=== PATIENT | male | born 1995 | race Caucasian/White ===

== ENCOUNTER 2018-07-08 19:30 | Inpatient (IN) | payer OTHER, BC ==
[2018-07-08] MEDS ORDERED: ONDANSETRON 4 MG/2 ML VIAL IVP ONE (19:51)
[2018-07-08] MEDS ORDERED: NS 1,000 ML IV ONE (19:55)
--- NOTE | 2018-07-08 19:55 | EDPHY ---
H & P Stated Complaint: fell hard skiing friday, worsening L rib/abd/flank pain, nausea Time Seen by Provider: 07/08/18 19:39 HPI/ROS: CHIEF COMPLAINT: Left upper quadrant pain HISTORY OF PRESENT ILLNESS: 23-year-old male presents with left upper quadrant pain. 1 week ago he was snowboarding and fell forward striking his left side on the snow. Initially he felt okay, but developed gradually increasing left- sided rib and abdominal pain the following day. Vomiting x1 initially. The pain is now moderate to severe and constant. The pain increases with deep inspiration and with movement. Tolerating oral fluids well. Has stopped his usual activities secondary to pain and is mainly lying around his home. No SOB or other associated symptoms. He was helmeted and did not hit his head. No PALENCIA or neck pain. REVIEW OF SYSTEMS: complete 10 point ROS reviewed and is negative except for the noted elements in the HPI - Personal History Current Tetanus/Diphtheria Vaccine: Yes Current Tetanus Diphtheria and Acellular Pertussis (TDAP): Yes - Medical/Surgical History Hx Asthma: No Hx Chronic Respiratory Disease: No Hx Diabetes: No Hx Cardiac Disease: No Hx Renal Disease: No Hx Cirrhosis: No Hx Alcoholism: No Hx HIV/AIDS: No Hx Splenectomy or Spleen Trauma: No Other PMH: MCL injury - Social History Smoking Status: Never smoked Alcohol Use: Sober Drug Use: None Additional Social History: Student at - Physical Exam Exam: General Appearance: Alert, pleasant, appears in pain with inspiration and with any movement Eyes: Pupils equal and round, no conjunctival pallor ENT, Mouth: Mucous membranes moist Neck: Normal inspection, NT, ROM without pain Respiratory: normal inspection, NT, Lungs are clear to auscultation Cardiovascular: Regular rate and rhythm Gastrointestinal: Abdomen is diffusely tender, especially in the left upper quadrant Back: Left paraspinous tenderness, no midline tenderness to palpation/ percussion Neurological: A&O, nonfocal, slow and steady gait Skin: Warm and dry, no ecchymosis Extremities: Normal inspection, no tenderness Psychiatric: Mood and affect normal Constitutional: Initial Vital Signs Temperature (C) 37.1 C 07/08/18 19:34 Heart Rate 101 H 07/08/18 19:34 Respiratory Rate 18 07/08/18 19:34 Blood Pressure 110/78 07/08/18 19:34 O2 Sat (%) 92 07/08/18 19:34 O2 Delivery Mode Room Air Allergies/Adverse Reactions: bacitracin [From Neosporin] Allergy (Severe, Verified 07/08/18 19:32) bacitracin zinc [From Neosporin] Allergy (Severe, Verified 07/08/18 19:32) benzalkonium chloride [From Neosporin] Allergy (Severe, Verified 07/08/18 19:32) gramicidin D [From Neosporin] Allergy (Severe, Verified 07/08/18 19:32) hydrocortisone [From Neosporin] Allergy (Severe, Verified 07/08/18 19:32) neomycin sulfate [From Neosporin] Allergy (Severe, Verified 07/08/18 19:32) polymyxin B [From Neosporin] Allergy (Severe, Verified 07/08/18 19:32) polymyxin B sulfate [From Neosporin] Allergy (Severe, Verified 07/08/18 19:32) Home Medications: Medication Instructions Recorded Herbals/Supplements -Info Only 1 ea PO DAILY 07/08/18 Ibuprofen [Motrin (*)] 200 - 600 mg PO Q6H PRN 07/08/18 Acetaminophen [Tylenol 325mg (*)] 325 - 650 mg PO Q4HRS PRN tab 07/10/18 oxyCODONE IR [Oxycodone Ir (*)] 5 - 10 mg PO Q4 PRN #30 tab 07/10/18 Medical Decision Making - Diagnostics Imaging Results: Abdomen CT 07/08/18 19:51 Impression: Two left renal lacerations, measuring greater than 1 cm. No definite extension into the renal pelvis or collecting system. No evidence for active extravasation. This would indicate a grade 3 injury. Pararenal hematoma and retroperitoneal hematoma, as above. Results called and discussed with Oralia Frost M.D., on July 08, 2018 at 2121. Imaging: Discussed imaging studies w/ revival clerk Radiologist, I viewed and interpreted images myself ED Course/Re-evaluation: This patient presents 1 week after snowboarding accident with left upper quadrant tenderness. Physical exam is quite concerning for intraperitoneal hemorrhage. CT scan of the abdomen pelvis ordered and reveals a grade 3 kidney laceration with surrounding hematoma, no rib fx and no splenic injury. Results discussed with the patient. He is clinically stable, with normal vital signs and hematocrit 37. Urinalysis is normal, no evidence of microscopic hematuria. Dr. Angelina Tellez was consulted for admission. Dr. Campbell was consulted and will see the patient in the hospital. The patient's pain was controlled with IV morphine, multiple doses required to control pain. Differential Diagnosis: Differential diagnosis includes though it is not limited to fracture, intracranial hemorrhage, pneumothorax, hemothorax, intra-abdominal hemorrhage. - Data Points Laboratory Results: Laboratory Results 07/08/18 19:54 07/08/18 19:54 Medications Given: Discontinued Medications Acetaminophen (Tylenol) 325 - 650 mg PO Q4HRS PRN PRN Reason: Pain, Mild Able to Take PO Stop: 01/04/19 22:58 Last Admin: 07/09/18 07:40 Dose: 650 mg Sodium Chloride (Ns) 1,000 mls @ 0 mls/hr IV EDNOW ONE; Wide Open PRN Reason: Protocol Stop: 07/08/18 19:56 Last Admin: 07/08/18 19:59 Dose: 1,000 mls Morphine Sulfate (Morphine) 6 mg IVP EDNOW ONE Stop: 07/08/18 19:52 Last Admin: 07/08/18 20:00 Dose: 6 mg Morphine Sulfate (Morphine) 6 mg IVP Q1H PRN PRN Reason: Pain, Severe Unable to Take PO Last Admin: 07/08/18 22:16 Dose: 4 mg Ondansetron HCl (Zofran) 4 mg IVP EDNOW ONE Stop: 07/08/18 19:52 Last Admin: 07/08/18 20:00 Dose: 4 mg Oxycodone HCl (Oxycodone Ir) 5 - 10 mg PO Q4 PRN PRN Reason: Pain, Severe Able to Take PO Stop: 07/19/18 09:32 Last Admin: 07/10/18 04:45 Dose: 5 mg Senna/Docusate Sodium (Senokot-S) 1 tab PO BID KANG Stop: 01/05/19 10:14 Last Admin: 07/09/18 22:10 Dose: 1 tab Point of Care Test Results: Chemistry 07/08/18 19:59 POC Sodium 142 mEq/L mEq/L (135-145) POC Potassium 3.5 mEq/L mEq/L (3.3-5.0) POC Chloride 103 mEq/L mEq/L (97-110) POC Total CO2 25 mEq/L mEq/L (22-31) POC BUN 19 mg/dL mg/dL (7-23) POC Creatinine 0.8 mg/dL mg/dL (0.7-1.3) POC Glucose 109 mg/dL H mg/dL (70-100) ISTAT H&H 07/08/18 19:59 POC Hgb 15.6 gm/dL gm/dL (13.7-17.5) POC Hct 46 % % (40-51) Departure - Departure Disposition: [facility] Acute Clinical Impression: Kidney laceration, left Qualifiers: Encounter type: initial encounter Qualified Code(s): S37.032A - Laceration of left kidney, unspecified degree, initial encounter Condition: Fair
[2018-07-08 20:09] LABS: PLATELET COUNT 210 10^3/uL (150-400)
[2018-07-08] MEDS ORDERED: ZOLPIDEM TARTRATE 5 MG TAB PO PRN (22:59)
[2018-07-08] MEDS ORDERED: DIAZEPAM 5 MG TAB PO PRN (22:59)
[2018-07-08] MEDS ORDERED: D5W 1/2 NS 1,000 ML IV SCH (23:00)
--- NOTE | 2018-07-08 23:25 | GHP ---
[f rep st] HISTORY AND PHYSICAL DATE OF ADMISSION: 07/08/2018 HISTORY OF PRESENT ILLNESS: Patient is a 23-year-old male who had a fall snowboarding 5 days ago. Alfie castillo has had persistent left flank and upper abdominal pain. He came to the ER tonight because of incre asing pain and discomfort. He has had no hematuria. He had no shortness of breath. He denies any l oss of consciousness, and he complains of no other injuries. He has been moving around and walking b ut not very actively. Chest x-ray in the ER is clear, although report is pending. The CT scan revea ls a left renal laceration with perinephric hematoma and psoas retroperitoneal hematoma on the left, but no other major injuries identified. He is admitted at this time for pain control and observation . Risks and options have been fully discussed. REVIEW OF SYSTEMS: Negative on a full 10-point review. Specifically, he does not smoke, and denies diabetes, cardiac problems, or asthma. MEDICATIONS: Include cannabis and ibuprofen. PAST HISTORY: Reveals no history of surgery or major hospitalizations or serious medical problems. SOCIAL HISTORY: Reveals he does not smoke. PHYSICAL EXAMINATION: GENERAL: Reveals an alert but uncomfortable 23-year-old male in no acute dist ress. VITAL SIGNS: He is afebrile. HEENT: Reveals him to be PERRLA, nonicteric, EOMs intact. No adenopathy or oral lesions. NECK: Supple, nontender, with full range of motion. CHEST: Clear and symmetric. He is tender over his lower left ribs but with full breath sounds. CARDIAC: Reveals a r egular rhythm without murmurs. ABDOMEN: Soft. It is mildly distended. He is quite guarding in the left upper quadrant and left flank. There are no hernias. GENITALIA: Normal. EXTREMITIES: Revea l full range of motion, full pulses. BACK: Reveals no spinal tenderness or CVA tenderness. NEURO: Symmetric and physiologic. PSYCH: Reveals him to be alert, oriented, and cooperative. ALLERGIES: Include Neosporin. IMPRESSION: Left renal laceration with perinephric hematoma with no signs of extravasation or urine leak. PLAN: Admit for pain control and observation. Urology consultation. /[id number]/MODL
[2018-07-09] MEDS: ACETAMINOPHEN 325 MG TAB PO PRN ×2 (01:42→07:40)
[2018-07-09 05:43] LABS: PLATELET COUNT 188 10^3/uL (150-400)
[2018-07-09 05:50] LABS: INR 1.11 (0.83-1.16); PROTIME(PATIENT) 14.5 SEC (12.0-15.0)
--- NOTE | 2018-07-09 06:44 | PDMN ---
Medical Necessity Medical necessity: Pt meets inpt criteria per MD order and Urologic Disease GRG. 23 y/o presenting w/persistent and increasing L flank and upper abd pain, had fall snowboarding 5 days ago, admitted w/L renal laceration w/perinephric hematoma and psoas retroperitoneal hematoma as seen on CT. Pain control, urology consult today.
--- NOTE | 2018-07-09 09:34 | TRAUMAPNT ---
Trauma Tertiary Progress Note New Findings: none Subjective: pt complainin gof left sided abdomianl pain pe heent no injuries lungs clear abd firm, no masses, teder luq and left med abdomen back, ext wnl assess: known 5 day old le renal laceration with no urine leak. urolgy to see today, liekly can be discharged today or tomorrw, as hct kecia, pt eating, requiring only tylenol for pain. Objective: Vital Signs Temp Pulse Resp BP Pulse Ox 36.6 C 71 16 112/63 95 07/09/18 07:20 07/09/18 07:20 07/09/18 07:20 07/09/18 07:20 07/09/18 07:20 Laboratory Results 07/09/18 05:21 07/09/18 05:21 07/08/18 07/09/18 07/10/18 05:59 05:59 05:59 Intake Total 450 Output Total 400 575 Balance 50 -575 PT 14.5 SEC (12.0-15.0) 07/09/18 05:21 INR 1.11 (0.83-1.16) 07/09/18 05:21
--- NOTE | 2018-07-09 10:17 | SOAPPROG ---
SOAP Progress Note Assessment/Plan: Assessment: Kidney laceration, left Acute bed rest, serial hcts and dc in am- -discussed risks and recommendations after DC Plan: as above 07/09/18 10:14 Subjective: rt flank and rib pain Objective: Vital Signs Temp Pulse Resp BP Pulse Ox 36.6 C 71 16 112/63 95 07/09/18 07:20 07/09/18 07:20 07/09/18 07:20 07/09/18 07:20 07/09/18 07:20 Laboratory Results 07/09/18 05:21 07/09/18 05:21 07/08/18 07/09/18 07/10/18 05:59 05:59 05:59 Intake Total 450 Output Total 400 575 Balance 50 -575 PT 14.5 SEC (12.0-15.0) 07/09/18 05:21 INR 1.11 (0.83-1.16) 07/09/18 05:21 Physical Exam - Physical Exam General Appearance: alert Neck: full range of motion, supple Respiratory: No respiratory distress Cardiac/Chest: regular rate, rhythm Abdomen: other (pain in rt upper quadrant seems more musculoskeletal) Back: CVA tenderness (left rib and muscle pain noted, no bruise or crepitus) Skin: warm/dry Extremities: other (negative psoas sign and no anterior leg numbness), No calf tenderness, No Krishna's sign Neuro/Psych: alert, oriented x 3 ICD10 Worksheet Patient Problems: Problems Problem Status Onset Kidney laceration, left Acute
--- NOTE | 2018-07-09 10:39 | GCON ---
[f rep st] CONSULTATION The Trauma Service has asked that I see this patient because of left renal fracture. By history, the gentleman was snowboarding 5 days ago at [place], and he had an injury where he hit the tip of his panchito windy and seemed to hit near the chair lift. He was dazed because he had a closed head injury with a h elmet on the left side of his head. The initial impressions by the people of [facility] that he had a wrist fracture. That panned out not to be so. He does not recall exactly how he hit with respect to his abdomen, chest, or back. He has had a CAT scan that reveals a left renal laceration with perine phric hematoma that extends down the psoas muscle anteriorly. There is no devascularized segment of kidney and no major vascular injury and no urine extravasation on the contrast study, and the ureter appeared to be normal without any obstruction. I did not really appreciate any rib fractures on the study. The spleen appeared to be intact. Gallbladder and liver appeared to be intact, and other gaudencio n that retroperitoneal hematoma, remaining structures appeared to be normal. There was a question of having an upper pole cyst versus a small fracture there and probably would do an ultrasound in 6 mon ths to assess the kidney and if there are any cystic lesions or fluid collections. REVIEW OF SYSTEMS: Negative for cardiac, respiratory, GI, and endocrine. MEDICATIONS: Include: 1. Cannabis. 2. Ibuprofen. 3. CBD oil. PAST HISTORY: No surgery or previous medical issues. SOCIAL HISTORY: Reviewed. DIAGNOSTICS: Reviewed his laboratory values and the CAT scan. CAT scan is noted and the impression on the CAT scan is he has a grade 3 fracture without urinary extravasation or devascularization or hi lar injury. RECOMMENDATION: Several hematocrits confirmed that he is not having decreased hematocrit or blood co unt. Recommend he be on Senokot to help prevent any constipation. Pain control will be addressed by the trauma team, and if his hematocrit is stabilized, which I am sure it will be, he should be disch arged home in a.m. I have recommended that he not do any contact sports of any kind for 3 months to let the kidney heal, and in a month if he is feeling better, more physical activity can be performed and follow up with us with an ultrasound which we could do or schedule at a 4-week visit in the [facility]. /[id number]/MODL
[2018-07-09] MEDS: SENNOSIDES/DOCUSATE SODIUM TAB PO SCH ×2 (11:22→22:10)
[2018-07-09] MEDS: oxyCODONE IR 5 MG TAB PO PRN ×2 (14:08→22:11)
--- NOTE | 2018-07-09 15:36 | ASMTCMCOM ---
CM Note CM Note Notes: Pt admitted to hospital for left flank pain. Pt had a fall 5 days ago while snowboarding. Imaging shows a lacerated kidney, treatment will be supportive at this time. Per RN and OT, pt ambulates independently, no needs identified. CM available for any changes. Will dc home w/support of girlfriend when medically stable. DC Plan: Independent Date Signed: 07/09/2018 03:35 PM Electronically Signed By:Aide Torres RN
[2018-07-09 16:00] LABS: PLATELET COUNT 193 10^3/uL (150-400)
[2018-07-09 23:05] VITALS: BP 116/70
[2018-07-10] MEDS: oxyCODONE IR 5 MG TAB PO PRN (04:45)
--- NOTE | 2018-07-10 08:30 | PDDCSUM ---
Discharge Summary Discharge Summary: DISCHARGE SUMMARY Date of Admission July 08, 2018 Date of Discharge July 10, 2018 DISCHARGE DIAGNOSES -snowboarding accident with multiple left renal lacerations without extravasation with perirenal hematoma and retroperitoneal hematoma HOSPITAL COURSE The patient presented to the emergency department 5 days after sustaining a fall while snowboarding. Workup in the emergency department found the above injuries. He was subsequently admitted to the trauma service. His hemoglobin was monitored and was stable. The patient had consultation from urology who agreed with conservative management. The patient subsequently did well, he had improvement of his pain, he also had consultations from both Physical and Occupational therapy. He was discharged home in stable condition on the 10 of July. DISCHARGE MEDICATIONS Oxycodone as needed for pain DISPOSITION Home FOLLOW UP Follow up with Dr. Abrams of Urology and 4 weeks Follow up with Trauma Services as needed, no formal follow-up required Total DC time, 30 minutes
[2018-07-10] MEDS ORDERED: Herbals/Supplements -Info Only PO SCH (09:00)
== END 2018-07-10 09:30 | disposition home or self-care (01) | DRG 700 ==
LOC: F3E 23:07
PROVIDERS: ADMIT Surgery; ATTEND Surgery
DX: S37.052A Moderate laceration of left kidney, initial encounter (principal); E86.9 Volume depletion, unspecified; V00.311A Fall from snowboard, initial encounter; Y93.23 Activity, snow (alpine) (downhill) skiing, snowboarding, sledding, tobogganing and snow tubing; Y92.830 Public park as the place of occurrence of the external cause
CPT/HCPCS: 82435-PO; 82565-PO; 82947-PO; 84132-PO; 84295-PO; 84520-PO; 85014-ER; 92523-GN; 96374; 97161-GP; J2270; J2405